=== PATIENT | female | born 1950 | race Two or more races ===

== ENCOUNTER 2019-05-22 09:25 | Emergency (ER) | payer MEDICARE, MEDICAID ==
[~2019-05-22] VITALS: Ht 162.6 cm; Wt 74.8 kg
[~2019-05-22 09:25] MED LIST: BENAZEPRIL HCL20 MG ORAL; TRAMADOL HCL50 MG ORAL
--- NOTE | 2019-05-22 09:25 | Emergency Room Report ---
History of Present Illness General Chief Complaint: Back Pain-No Injury Present Illness HPI 69-year-old female presenting with back pain. Pain started 3 to 4 days ago. It is intermittent in nature and radiates into the left lower leg as well as into the left groin. She does note some mild dysuria which started this weekend. She denies any hematuria. Patient does state history of arthritis. She took naproxen 500 mg for pain yesterday with no improvement. She has not taken any this morning as she has not eaten. She denies any lower extremity weakness, numbness, dizziness, headache, nausea, vomiting, recent falls or trauma. She denies any decreased sensation in groin, incontinence of bowel or bladder Allergies: Coded Allergies: No Known Allergies (Unverified , 02/01/16) Patient History Now: No Review of Systems Constitutional: Denies: chills, fever Respiratory: Denies: cough, shortness of breath Cardiovascular: Denies: chest pain, palpitations Gastrointestinal: Denies: diarrhea, vomiting Genitourinary: Denies: hematuria, pain Musculoskeletal: Reports: back pain; Denies: joint swelling Skin: Denies: rash, lesions Neurological: Denies: headache, dizziness Physical Exam Vital Signs Date Time Temp Pulse Resp B/P (MAP) Pulse Ox O2 Delivery O2 Flow Rate FiO2 05/22/19 09:21 98.2 68 20 166/97 (120) Room Air Sp02 EP Interpretation: reviewed General Appearance: well appearing, no apparent distress, non-toxic Head: normocephalic, atraumatic Eyes: bilateral eye normal inspection ENT: hearing grossly normal, EOM grossly intact, moist mucus membranes Neck: supple Respiratory: lungs clear, normal breath sounds, no respiratory distress, speaking full sentences Cardiovascular #1: regular rate, rhythm, normal capillary refill Cardiovascular #2: 2+ radial (R), 2+ radial (L) Gastrointestinal: soft, non-distended Rectal: deferred Genitourinary: no CVA tenderness Musculoskeletal: decreased range of motion - Secondary to pain unable to fully ambulate without assistance, no calf tenderness, moves extm spontaneously, no lower extremity edema, tender - Over left lumbar back and left buttocks on palpation, Neurologic: alert, motor strength/tone normal - Limited exam due to left-sided lower back pain but no gross deficits noted, 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 Not improving with anti-inflammatories. Differential includes urinary tract infection, pyelonephritis, kidney stones, arthritic back pain, sciatica, spinal stenosis, spinal abscess, Doubt spinal abscess given the fact that patient is not an IV drug user and has no prior history of similar. Likely doubt spinal stenosis as lower extremity neurological exam within normal limits. We will test all labs and urine for other diagnoses. Laboratory Tests Test 05/22/19 09:55 Urine Color Pale yellow Urine Appearance Clear Urine pH 7 (4.5-8.0) Urine Specific [place] 1.010 (1.005-1.035) Urine Protein Negative (NEGATIVE) Urine Glucose (UA) Negative (NEGATIVE) Urine Ketones Negative (NEGATIVE) Urine Blood Negative (NEGATIVE) Urine Nitrite Negative (NEGATIVE) Urine Bilirubin Negative (NEGATIVE) Urine Urobilinogen Normal MG/DL (0.0-1.0) Urine Leukocyte Esterase Negative (NEGATIVE) Lab Results Impression Urinalysis no signs of blood within normal limits. CT/MRI/US Diagnostic Results CT/MRI/US Diagnostic Results : Imaging Test Ordered: CT abdomen pelvis Impression Final Report EXAM: CT Abdomen and Pelvis Without Intravenous Contrast CLINICAL HISTORY: ABD PAIN TECHNIQUE: Axial computed tomography images of the abdomen and pelvis without intravenous contrast. CTDI is 22.9 mGy and DLP is 1198.8 mGy-cm. One or more of the following dose reduction techniques were used: automated exposure control, adjustment of the mA and/or kV according to patient size, use of iterative reconstruction technique. COMPARISON: No relevant prior studies available. FINDINGS: There is no acute lung base infiltrate. There is a 2.8 cm cyst in the right hepatic lobe. The biliary tree and pancreas are unremarkable for noncontrast technique. There is a 1.6 cm left adrenal nodule. Low-density is suggestive of a benign adenoma. 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 No evidence of rupture. Extensive aortoiliac atherosclerosis. No AAA. There is a small sliding-type hiatal hernia. There is no bowel obstruction or perforation. The appendix is unremarkable. No acute fracture. 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 No evidence of rupture. 1.6 cm left adrenal nodule. Low-density is suggestive of a benign adenoma. Last Vital Signs Date Time Temp Pulse Resp B/P (MAP) Pulse Ox O2 Delivery O2 Flow Rate FiO2 05/22/19 09:21 98.2 68 20 166/97 (120) Room Air Status: improved Reevaluation Impression Patient is now able to ambulate with less discomfort. Patient's pain is improved. Patient discharged follow-up Disposition: HOME, SELF-CARE Condition: Stable Scripts Diclofenac Sodium (VOLTAREN) 100 Gm Gel..gram. 100 GM TP DAILY for 7 Days, #100 GM Prov: Vinicius Aragon M.D. 05/22/19 Lidocaine Patch* (Lidoderm Patch*) 1 Each Adh..patch 1 PATCH TOPIC DAILY, #7 PATCH 0 Refills Patch(es) may remain in place for up to 12 hours in any 24-hour period. Prov: Vinicius Aragon M.D. 05/22/19 Referrals: [facility] Patient Instructions: Back Pain, Adult Additional Instructions: Please follow-up with your primary care doctor in 2 to 3 days for reevaluation of back pain. Please use medications as prescribed. Return to emergency room with any new onset of symptoms. Vinicius Aragon M.D. May 22, 2019 09:25
[2019-05-22] MEDS ORDERED: Ketorolac 30mg Inj IV ONE (09:45)
[2019-05-22 09:48] VITALS: BP 169/94
[2019-05-22] MEDS ORDERED: VENTOLIN HFA18 GM INH (09:53)
[2019-05-22] MEDS ORDERED: PLAVIX75 MG ORAL (09:53)
[2019-05-22] MEDS ORDERED: FLOVENT2 PUFF1 INH (09:53)
[2019-05-22] MEDS ORDERED: NAPROXEN500 M2 ORAL (09:53)
[2019-05-22] MEDS ORDERED: BENAZEPRIL HCL20 MG ORAL (09:56)
[2019-05-22 10:09] LABS: APPEARANCE,URINE CLEAR; BILIRUBIN, URINE NEGATIVE (NEGATIVE); COLOR,URINE PALE YELLOW; GLUCOSE, URINE (UA) NEGATIVE (NEGATIVE); KETONES,URINE NEGATIVE (NEGATIVE); LEUKOCYTE ESTERASE ,URINE NEGATIVE (NEGATIVE); NITRITE,URINE NEGATIVE (NEGATIVE); PH,URINE 7 (4.5-8.0); PROTEIN,URINE NEGATIVE (NEGATIVE); UROBILINOGEN,URINE NORMAL MG/DL (0.0-1.0)
--- NOTE | 2019-05-22 11:01 | Diagnostic Imaging Report ---
EXAM: CT Abdomen and Pelvis Without Intravenous Contrast CLINICAL HISTORY: ABD PAIN TECHNIQUE: Axial computed tomography images of the abdomen and pelvis without intravenous contrast. CTDI is 22.9 mGy and DLP is 1198.8 mGy-cm. One or more of the following dose reduction techniques were used: automated exposure control, adjustment of the mA and/or kV according to patient size, use of iterative reconstruction technique. COMPARISON: No relevant prior studies available. FINDINGS: There is no acute lung base infiltrate. There is a 2.8 cm cyst in the right hepatic lobe. The biliary tree and pancreas are unremarkable for noncontrast technique. There is a 1.6 cm left adrenal nodule. Low-density is suggestive of a benign adenoma. 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 No evidence of rupture. Extensive aortoiliac atherosclerosis. No AAA. There is a small sliding-type hiatal hernia. There is no bowel obstruction or perforation. The appendix is unremarkable. No acute fracture. 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 No evidence of rupture. 1.6 cm left adrenal nodule. Low-density is suggestive of a benign adenoma.
[2019-05-22] MEDS ORDERED: LIDODERM700 M1 TOPIC (11:14)
[2019-05-22 11:29] LABS: BASOPHILS % (AUTO) 0.8 % (0.0-2.0); EOSINOPHILS % (AUTO) 4.1 % (0.0-3.0); HEMATOCRIT 40.3 % (37.0-47.0); HEMOGLOBIN 12.6 G/DL (12.0-16.0); MEAN CORPUSCULAR VOLUME 90 FL (80-99); MONOCYTES % (AUTO) 8.1 % (1.0-10.0); PLATELET COUNT 226 K/UL (150-450); RED BLOOD COUNT 4.49 M/UL (4.20-5.40); RED CELL DISTRIBUTION WIDTH 12.2 % (11.6-14.8); WHITE BLOOD COUNT 4.7 K/UL (4.8-10.8)
[2019-05-22 11:39] LABS: ANION GAP 9 mmol/L (5-15); BLOOD UREA NITROGEN 12 mg/dL (7-18); CALCIUM 9.1 MG/DL (8.5-10.1); CARBON DIOXIDE 29 MMOL/L (21-32); CHLORIDE 106 MMOL/L (98-107); CREATININE 0.6 MG/DL (0.55-1.30); POTASSIUM 3.7 MMOL/L (3.5-5.1); SODIUM 144 MMOL/L (136-145)
[2019-05-22 11:44] LABS: ALANINE AMINOTRANSFERASE 31 U/L (12-78); ALKALINE PHOSPHATASE 95 U/L (46-116); ASPARTATE AMINO TRANSFERASE 20 U/L (15-37); BILIRUBIN,TOTAL 0.3 MG/DL (0.2-1.0)
[2019-05-22] MEDS ORDERED: VOLTAREN100 G1 TP (11:54)
[2019-05-22 12:10] VITALS: BP 134/87
== END 2019-05-22 12:10 | disposition home or self-care (01) ==
LOC: EDBD 09:25 → EMR 09:52
DX: M54.9 Dorsalgia, unspecified (principal); R30.0 Dysuria; M79.605 Pain in left leg; J98.4 Other disorders of lung; I72.2 Aneurysm of renal artery
CPT/HCPCS: 36415; 74176; 80053; 81003; 85025; 96374; 99284; J1885; J7040